=== PATIENT | male | born 1960 | race African-American/Black ===

== ENCOUNTER 2017-03-01 16:54 | Inpatient (IN) ==
[2017-03-01] MEDS ORDERED: cefTRIAXone 1,000 MG in SODIUM CHLORIDE 0.9% 100 ML IV STA (20:11)
[2017-03-01] MEDS ORDERED: ASPIRIN 325 MG TABLET PO STA (20:11)
[2017-03-01] MEDS ORDERED: methylPREDNISolone SOD SUC 125 MG/2 ML VIAL IV STA (20:11)
[2017-03-01] MEDS ORDERED: NITROGLYCERIN 2% OINT 1 INCH/GM PACK TOP STA (20:11)
[2017-03-01] MEDS ORDERED: FUROSEMIDE 100 MG/10 ML VIAL IV STA (20:11)
[2017-03-01] MEDS ORDERED: hydrALAZINE 20 MG/1 ML VIAL IV STA (20:11)
[2017-03-01] MEDS ORDERED: ALBUTEROL 2.5 MG/3 ML NEB RESP TX ONE (20:16)
[2017-03-01] MEDS ORDERED: ALBUTEROL 2.5 MG/3 ML NEB RESP TX SCH (20:30)
[2017-03-01 20:43] LABS: Basophils % 0.3 % (0.0-0.8); Eosinophils % 0.2 % (0.00-10.9); Hematocrit 41.1 VOL% (42.0-52.0); Hemoglobin 13.2 GM/DL (14.0-18.0); Immature Granulocytes % 4.3 %; Immature Granulocytes Absolute 0.42 #; Lymphocytes # 1.8 10*3/uL (1.4-4.0); Lymphocytes % 18.3 % (21.2-54.2); Mean Corpuscular HGB Conc 32.1 GM/DL (32-36); Mean Corpuscular Hemoglobin 25 PG (27-34); Mean Platelet Volume 9.1 FL (9.6-12.0); Monocytes # 1.2 10*3/uL (0.11-0.8); Monocytes % 12.7 % (1.7-12.7); NRBC # 0.02 10*3/uL; Neutrophils # 6.2 10*3/uL (1.4-7.4); Neutrophils % 64.2 % (38.7-73.9); Platelet Count 335 T/CUMM (130-400); Red Cell Distribution Width 15.9 % (9.3-17.3); White Blood Count 9.7 T/CUMM (4-12)
[2017-03-01] MEDS ORDERED: hydrALAZINE 20 MG/1 ML VIAL ONE (20:45)
[2017-03-01] MEDS ORDERED: NITROGLYCERIN 2% OINT 1 INCH/GM PACK TOP ONE (20:45)
[2017-03-01] MEDS ORDERED: SODIUM CHLORIDE 0.9% 100 ML IV ONE (20:45)
[2017-03-01] MEDS ORDERED: FUROSEMIDE 100 MG/10 ML VIAL ONE (20:45)
[2017-03-01] MEDS ORDERED: cefTRIAXone 1,000 MG VIAL ONE (20:45)
[2017-03-01] MEDS ORDERED: ASPIRIN 325 MG TABLET ONE (20:46)
[2017-03-01] MEDS ORDERED: methylPREDNISolone SOD SUC 125 MG/2 ML VIAL ONE (20:46)
[2017-03-01 20:53] LABS: INR 0.9; PT Patient Result 9.2 SECS
[2017-03-01 21:01] LABS: Alanine Aminotransferase 34 U/L (16-61); Albumin 2.9 G/DL (3.4-5.0); Alkaline Phosphatase 84 U/L (45-117); Aspartate Amino Transferase 14 U/L (0-37); Bilirubin,Total < 0.39 MG/DL (0.2-1.0); Blood Urea Nitrogen 20 MG/DL (7-18); Total Protein 6.6 G/DL (6.4-8.3)
[2017-03-01 21:02] LABS: Glucose 369 MG/DL (74-106); Magnesium 2.2 MG/DL (1.8-2.4); Osmolality,Calculated 290.8 MOS/KG (273-304); Potassium 4.1 MMOL/L (3.5-5.1); Sodium 137 MMOL/L (136-145); Troponin I Only 0.037 NG/ML (0.00-0.045)
[2017-03-01] MEDS ORDERED: INSULIN REGULAR 100 UNIT/ML SUBCUT STA (21:10)
[2017-03-01] MEDS ORDERED: INSULIN REGULAR 100 UNIT/ML ONE (21:21)
[2017-03-01 22:56] LABS: Apearance,Urine CLEAR (Clear); Bacteria,Urine Moderate /HPF (Few); Bilirubin,Urine Negative (Negative); Blood, Urine Small mg/dL (Negative); Glucose,Urine (UA) >=500 mg/dL (Negative); Hyaline Casts,Urine 1 /LPF (0-3); Ketones,Urine Negative (Negative); Mucus,Urine Occasional /LPF (Occasional); Nitrite,Urine Negative (Negative); Protein,Urine 30 MG/DL; RBC,Urine 2 /HPF (0-4); Squamous Epithelial Cell,Urine Occasional /HPF (0-10); Urine Color Straw (Yellow); Urine Specific Gravity 1.006 (1.001-1.035); Urine Urobilinogen < 2.0 EU/DL (0.2-1.0); WBC,Urine 5 /HPF (0-6)
[2017-03-01 23:04] LABS: Barbiturates Screen,Urine Negative (Negative); Benzodiazepines Screen,Urine Negative (Negative); Cannabinoid Screen,Urine Negative (Negative); Opiate Screen,Urine Negative (Negative); Phencyclidine Screen,Urine Negative (Negative)
[2017-03-01] MEDS ORDERED: ALBUTEROL/IPRATROPIUM 3 ML NEB RESP TX PRN (23:38)
[2017-03-01] MEDS ORDERED: GLUCAGON 1 MG VIAL IM PRN (23:42)
[2017-03-01] MEDS ORDERED: DEXTROSE 50% 25 GM/50 ML VIAL IV PRN (23:42)
[2017-03-02] MEDS ORDERED: INFLUENZA VIRUS VACCINE 0.5 ML SYRINGE IM ONE (00:41)
[2017-03-02] MEDS: ENOXAPARIN 40 MG/0.4 ML SYRINGE SUBCUT SCH (00:41)
[2017-03-02] MEDS: THEOPHYLLINE ER 300 MG TABLET PO SCH ×2 (00:41→11:58)
[2017-03-02] MEDS: methylPREDNISolone SOD SUC 40 MG/1 ML VIAL IV SCH ×2 (00:42→04:46)
[2017-03-02] MEDS ORDERED: PNEUMOCOCCAL VACCINE (23 VALENT) 0.5 ML VIAL IM ONE (00:44)
[2017-03-02] MEDS ORDERED: DEXTROSE 50% 25 GM/50 ML VIAL IV PRN (01:15)
[2017-03-02] MEDS ORDERED: GLUCAGON 1 MG VIAL IM PRN (01:15)
[2017-03-02] MEDS: INSULIN REGULAR 100 UNIT/ML SUBCUT SCH ×4 (01:42→17:36)
[2017-03-02] MEDS: ALBUTEROL/IPRATROPIUM 3 ML NEB RESP TX SCH ×4 (02:06→19:05)
[2017-03-02 03:20] LABS: Osmolality,Calculated 293.1 MOS/KG (273-304); Potassium 4.1 MMOL/L (3.5-5.1)
[2017-03-02] MEDS: AZITHROMYCIN INJ 500 MG in SODIUM CHLORIDE 0.9% 250 ML IV SCH (03:45)
[2017-03-02] MEDS ORDERED: INSULIN REGULAR 100 UNIT/ML SUBCUT ONE (03:46)
[2017-03-02] MEDS: INSULIN GLARGINE 100 UNIT/ML SUBCUT SCH ×3 (03:58→10:18)
[2017-03-02 04:15] LABS: Risk Ratio 4.25
[2017-03-02] MEDS: ASPIRIN EC 81 MG TABLET PO SCH (08:33)
[2017-03-02] MEDS: LOSARTAN 50 MG TABLET PO SCH (08:33)
[2017-03-02] MEDS: ALLOPURINOL 100 MG TABLET PO SCH (08:33)
[2017-03-02] MEDS: PANTOPRAZOLE 40 MG TABLET PO SCH (08:33)
[2017-03-02] MEDS: CETIRIZINE 10 MG TABLET PO SCH (08:33)
[2017-03-02] MEDS ORDERED: glipiZIDE 10 MG TABLET PO SCH (09:00)
[2017-03-02] MEDS ORDERED: OXYMETAZOLINE 0.05% NASAL SPRAY 15 ML BOTTLE BOTH NARES PRN (10:03)
[2017-03-02] MEDS: MAGNESIUM CHLORIDE 64 MG TABLET PO SCH ×2 (10:09→20:51)
[2017-03-02] MEDS: POTASSIUM CHLORIDE 10 MEQ TABLET PO SCH ×2 (10:09→20:52)
[2017-03-02] MEDS: DILTIAZEM 30 MG TABLET PO SCH ×3 (10:10→20:51)
[2017-03-02] MEDS: hydrALAZINE 25 MG TABLET PO SCH ×2 (10:12→20:52)
[2017-03-02] MEDS: prednisoLONE 5 MG TABLET PO SCH (11:06)
[2017-03-02] MEDS: ROSUVASTATIN 20 MG TABLET PO SCH (17:36)
[2017-03-02] MEDS: MONTELUKAST 10 MG TABLET PO SCH (20:52)
[2017-03-02] MEDS: cefTRIAXone 2,000 MG in SYRINGE 1 EACH IV SCH (20:52)
[2017-03-02] MEDS ORDERED: metFORMIN 500 MG TABLET PO SCH (21:00)
[2017-03-03] MEDS: ALBUTEROL/IPRATROPIUM 3 ML NEB RESP TX SCH ×4 (00:12→19:33)
[2017-03-03] MEDS: AZITHROMYCIN INJ 500 MG in SODIUM CHLORIDE 0.9% 250 ML IV SCH ×2 (01:47→23:44)
[2017-03-03] MEDS: INSULIN REGULAR 100 UNIT/ML SUBCUT SCH ×5 (01:47→23:55)
[2017-03-03] MEDS: ENOXAPARIN 40 MG/0.4 ML SYRINGE SUBCUT SCH ×2 (01:48→23:44)
[2017-03-03] MEDS: THEOPHYLLINE ER 300 MG TABLET PO SCH ×3 (01:48→23:44)
[2017-03-03] MEDS: BIMATOPROST 0.01% OPH SOLN 2.5 ML BOTTLE BOTH EYES SCH ×2 (01:49→20:58)
[2017-03-03] MEDS: LUMIGAN BOTH EYES SCH ×4 (01:50→20:57)
[2017-03-03] MEDS: prednisoLONE 5 MG TABLET PO SCH (09:34)
[2017-03-03] MEDS: ALLOPURINOL 100 MG TABLET PO SCH (09:34)
[2017-03-03] MEDS: MAGNESIUM CHLORIDE 64 MG TABLET PO SCH ×2 (09:34→20:57)
[2017-03-03] MEDS: CETIRIZINE 10 MG TABLET PO SCH (09:34)
[2017-03-03] MEDS: POTASSIUM CHLORIDE 10 MEQ TABLET PO SCH ×2 (09:34→20:57)
[2017-03-03] MEDS: ASPIRIN EC 81 MG TABLET PO SCH (09:34)
[2017-03-03] MEDS: ROSUVASTATIN 20 MG TABLET PO SCH (09:34)
[2017-03-03] MEDS: LOSARTAN 50 MG TABLET PO SCH (09:34)
[2017-03-03] MEDS: PANTOPRAZOLE 40 MG TABLET PO SCH (09:34)
[2017-03-03] MEDS: DILTIAZEM 30 MG TABLET PO SCH ×3 (09:34→20:57)
[2017-03-03] MEDS: INSULIN GLARGINE 100 UNIT/ML SUBCUT SCH (09:35)
[2017-03-03] MEDS: hydrALAZINE 25 MG TABLET PO SCH ×2 (09:39→20:57)
[2017-03-03] MEDS: cefTRIAXone 2,000 MG in SYRINGE 1 EACH IV SCH (20:00)
[2017-03-03] MEDS: MONTELUKAST 10 MG TABLET PO SCH (20:57)
[2017-03-04] MEDS: ALBUTEROL/IPRATROPIUM 3 ML NEB RESP TX SCH ×2 (00:59→07:19)
[2017-03-04] MEDS: INSULIN REGULAR 100 UNIT/ML SUBCUT SCH (06:11)
[2017-03-04 08:18] VITALS: BP 160/104
[2017-03-04] MEDS: MAGNESIUM CHLORIDE 64 MG TABLET PO SCH (09:10)
[2017-03-04] MEDS: PANTOPRAZOLE 40 MG TABLET PO SCH (09:10)
[2017-03-04] MEDS: CETIRIZINE 10 MG TABLET PO SCH (09:10)
[2017-03-04] MEDS: prednisoLONE 5 MG TABLET PO SCH (09:10)
[2017-03-04] MEDS: ROSUVASTATIN 20 MG TABLET PO SCH (09:10)
[2017-03-04] MEDS: ASPIRIN EC 81 MG TABLET PO SCH (09:10)
[2017-03-04] MEDS: LOSARTAN 50 MG TABLET PO SCH (09:10)
[2017-03-04] MEDS: POTASSIUM CHLORIDE 10 MEQ TABLET PO SCH (09:11)
[2017-03-04] MEDS: hydrALAZINE 25 MG TABLET PO SCH (09:11)
[2017-03-04] MEDS: LUMIGAN BOTH EYES SCH (09:11)
[2017-03-04] MEDS: DILTIAZEM 30 MG TABLET PO SCH (09:11)
[2017-03-04] MEDS: ALLOPURINOL 100 MG TABLET PO SCH (09:11)
[2017-03-04] MEDS: INSULIN GLARGINE 100 UNIT/ML SUBCUT SCH (09:11)
[2017-03-04] MEDS: THEOPHYLLINE ER 300 MG TABLET PO SCH (10:56)
== END 2017-03-04 10:45 | disposition home or self-care (01) | DRG 194 ==
LOC: N.ED 16:54 → N.EDINP 23:33 → N.5E 03-02 00:14
PROVIDERS: ADMIT Hospitalist; ATTEND Hospitalist

== ENCOUNTER 2017-05-07 13:39 | Inpatient (IN) ==
[2017-05-07 17:39] LABS: Basophils % 0.4 % (0.0-0.8); Eosinophils # 0.1 10*3/uL (0.0-0.87); Eosinophils % 1.2 % (0.00-10.9); Hemoglobin 12.6 GM/DL (14.0-18.0); Immature Granulocytes % 1.1 %; Immature Granulocytes Absolute 0.09 #; Lymphocytes # 2.5 10*3/uL (1.4-4.0); Mean Corpuscular HGB Conc 31.5 GM/DL (32-36); Mean Corpuscular Hemoglobin 25 PG (27-34); Mean Corpuscular Volume 78.6 FL (87-102); Mean Platelet Volume 9.2 FL (9.6-12.0); Monocytes # 1.3 10*3/uL (0.11-0.8); Monocytes % 15.7 % (1.7-12.7); Neutrophils # 4.1 10*3/uL (1.4-7.4); Neutrophils % 50.6 % (38.7-73.9); Platelet Count 423 T/CUMM (130-400); Red Blood Count 5.09 MC/CUMM (3.8-5.5); Red Cell Distribution Width 16.1 % (9.3-17.3); White Blood Count 8.1 T/CUMM (4-12)
[2017-05-07 17:59] LABS: Apearance,Urine CLOUDY (Clear); Bacteria,Urine Occasional /HPF (Few); Bilirubin,Urine Negative (Negative); Blood, Urine Small mg/dL (Negative); Glucose,Urine (UA) 50 mg/dL (Negative); Ketones,Urine Negative (Negative); Mucus,Urine Occasional /LPF (Occasional); Nitrite,Urine Negative (Negative); Protein,Urine 100 MG/DL; RBC,Urine 43 /HPF (0-4); Squamous Epithelial Cell,Urine Occasional /HPF (0-10); Urine Color Yellow (Yellow); Urine Specific Gravity 1.008 (1.001-1.035); Urine Urobilinogen < 2.0 EU/DL (0.2-1.0); WBC,Urine 246 /HPF (0-6)
[2017-05-07 18:02] LABS: Alanine Aminotransferase 70 U/L (16-61); Albumin 2.3 G/DL (3.4-5.0); Alkaline Phosphatase 106 U/L (45-117); Amylase 37 U/L (25-115); Aspartate Amino Transferase 65 U/L (0-37); Blood Urea Nitrogen 12 MG/DL (7-18); Glucose 238 MG/DL (74-106); Osmolality,Calculated 277.1 MOS/KG (273-304); Potassium 3.7 MMOL/L (3.5-5.1); Sodium 135 MMOL/L (136-145); Total Protein 6.1 G/DL (6.4-8.3); Troponin I Only < 0.015 NG/ML (0.00-0.045)
[2017-05-07 19:02] LABS: Lymphocytes 25 % (20-55); Segmented Neutrophils 63 % (50-85); Total Cells Counted 100
[2017-05-07 19:03] LABS: Anisocytosis Slight; Microcytosis Slight; Platelet Estimate Increased; Poikilocytosis Slight; Tear Drop Cells Few
[2017-05-07] MEDS ORDERED: ACETAMINOPHEN 325 MG TABLET PO PRN (21:41)
[2017-05-07] MEDS ORDERED: LEVOFLOXACIN 500 MG TABLET PO ONE (21:41)
[2017-05-07] MEDS ORDERED: ONDANSETRON 4 MG/2 ML VIAL IV PRN (21:41)
[2017-05-07] MEDS ORDERED: MEROPENEM 500 MG in SODIUM CHLORIDE 0.9% 100 ML IV SCH (21:41)
[2017-05-07] MEDS ORDERED: ENOXAPARIN 40 MG/0.4 ML SYRINGE SUBCUT SCH (21:41)
[2017-05-07] MEDS: POTASSIUM CHLORIDE 10 MEQ TABLET PO SCH (23:07)
[2017-05-07] MEDS: MONTELUKAST 10 MG TABLET PO SCH (23:07)
[2017-05-07] MEDS: MAGNESIUM CHLORIDE 64 MG TABLET PO SCH (23:07)
[2017-05-07] MEDS: DILTIAZEM 30 MG TABLET PO SCH (23:08)
[2017-05-07] MEDS: THEOPHYLLINE ER 300 MG TABLET PO SCH (23:08)
[2017-05-07] MEDS: glipiZIDE 10 MG TABLET PO SCH (23:08)
[2017-05-07] MEDS: methylPREDNISolone SOD SUC 40 MG/1 ML VIAL IV SCH (23:09)
[2017-05-07] MEDS: MEROPENEM 500 MG in SYRINGE 1 EACH IV SCH (23:11)
[2017-05-07] MEDS: SODIUM CHLORIDE 0.9% 1,000 ML IV SCH (23:43)
[2017-05-07] MEDS: ALBUTEROL/IPRATROPIUM 3 ML NEB RESP TX SCH (23:45)
[2017-05-08] MEDS: ALBUTEROL/IPRATROPIUM 3 ML NEB RESP TX SCH ×5 (03:04→21:37)
[2017-05-08 07:47] LABS: Alanine Aminotransferase 58 U/L (16-61); Albumin 2.1 G/DL (3.4-5.0); Alkaline Phosphatase 99 U/L (45-117); Aspartate Amino Transferase 43 U/L (0-37); Blood Urea Nitrogen 11 MG/DL (7-18); Calcium 7.6 MG/DL (8.5-10.1); Glucose 324 MG/DL (74-106); Potassium 4.4 MMOL/L (3.5-5.1); Sodium 136 MMOL/L (136-145); Total Protein 5.8 G/DL (6.4-8.3); Troponin I Only < 0.015 NG/ML (0.00-0.045)
[2017-05-08] MEDS ORDERED: LOSARTAN 50 MG TABLET PO SCH (09:00)
[2017-05-08] MEDS: SODIUM CHLORIDE 0.9% 1,000 ML IV SCH (09:03)
[2017-05-08] MEDS: THEOPHYLLINE ER 300 MG TABLET PO SCH ×2 (09:03→20:43)
[2017-05-08] MEDS: DILTIAZEM 30 MG TABLET PO SCH ×3 (09:04→20:43)
[2017-05-08] MEDS: CETIRIZINE 10 MG TABLET PO SCH (09:04)
[2017-05-08] MEDS: ALLOPURINOL 100 MG TABLET PO SCH (09:04)
[2017-05-08] MEDS: POTASSIUM CHLORIDE 10 MEQ TABLET PO SCH ×2 (09:04→20:43)
[2017-05-08] MEDS: ASPIRIN EC 81 MG TABLET PO SCH (09:04)
[2017-05-08] MEDS: MAGNESIUM CHLORIDE 64 MG TABLET PO SCH ×2 (09:04→20:43)
[2017-05-08] MEDS: glipiZIDE 10 MG TABLET PO SCH ×2 (09:04→20:43)
[2017-05-08] MEDS: PANTOPRAZOLE 40 MG TABLET PO SCH (09:04)
[2017-05-08] MEDS: methylPREDNISolone SOD SUC 40 MG/1 ML VIAL IV SCH ×3 (09:09→22:38)
[2017-05-08] MEDS: MEROPENEM 500 MG in SYRINGE 1 EACH IV SCH ×2 (10:23→22:34)
[2017-05-08] MEDS: INSULIN GLARGINE 100 UNIT/ML SUBCUT SCH (12:13)
[2017-05-08] MEDS: INSULIN REGULAR 100 UNIT/ML SUBCUT SCH ×4 (12:13→20:53)
[2017-05-08] MEDS: MONTELUKAST 10 MG TABLET PO SCH (20:42)
[2017-05-08] MEDS: LEVOFLOXACIN 250 MG TABLET PO SCH (20:51)
[2017-05-08] MEDS: BUDESONIDE 0.25 MG/2 ML NEB RESP TX SCH (21:37)
[2017-05-08] MEDS: FORMOTEROL 20 MCG/2 ML NEB RESP TX SCH (21:37)
[2017-05-09] MEDS: ALBUTEROL/IPRATROPIUM 3 ML NEB RESP TX SCH ×7 (01:19→23:49)
[2017-05-09] MEDS: SODIUM CHLORIDE 0.9% 1,000 ML IV SCH ×4 (01:21→23:01)
[2017-05-09 02:16] LABS: Basophils % 0.1 % (0.0-0.8); Hematocrit 29.9 VOL% (42.0-52.0); Hemoglobin 9.6 GM/DL (14.0-18.0); Immature Granulocytes % 0.9 %; Lymphocytes # 1.2 10*3/uL (1.4-4.0); Lymphocytes % 10.5 % (21.2-54.2); Mean Corpuscular HGB Conc 32.1 GM/DL (32-36); Mean Corpuscular Hemoglobin 25 PG (27-34); Mean Corpuscular Volume 77.1 FL (87-102); Mean Platelet Volume 9.3 FL (9.6-12.0); Monocytes % 8.6 % (1.7-12.7); Neutrophils % 79.9 % (38.7-73.9); Platelet Count 393 T/CUMM (130-400); Red Blood Count 3.88 MC/CUMM (3.8-5.5); Red Cell Distribution Width 15.9 % (9.3-17.3); White Blood Count 11.3 T/CUMM (4-12)
[2017-05-09 02:57] LABS: Calcium 8.1 MG/DL (8.5-10.1); Magnesium 1.8 MG/DL (1.8-2.4); Osmolality,Calculated 276.7 MOS/KG (273-304); Potassium 3.6 MMOL/L (3.5-5.1)
[2017-05-09] MEDS: FORMOTEROL 20 MCG/2 ML NEB RESP TX SCH ×2 (07:04→20:32)
[2017-05-09] MEDS: BUDESONIDE 0.25 MG/2 ML NEB RESP TX SCH ×2 (07:06→20:32)
[2017-05-09] MEDS: INSULIN GLARGINE 100 UNIT/ML SUBCUT SCH (09:00)
[2017-05-09] MEDS ORDERED: PROPOFOL 200 MG/20 ML VIAL IV ONE (11:00)
[2017-05-09] MEDS ORDERED: LIDOCAINE 100 MG/5 ML SYRINGE ONE (11:00)
[2017-05-09] MEDS ORDERED: BISACODYL 5 MG TABLET PO ONE (12:00)
[2017-05-09] MEDS: INSULIN REGULAR 100 UNIT/ML SUBCUT SCH ×4 (12:43→20:28)
[2017-05-09] MEDS: POTASSIUM CHLORIDE 10 MEQ TABLET PO SCH ×2 (14:24→20:25)
[2017-05-09] MEDS: DILTIAZEM 30 MG TABLET PO SCH ×3 (14:24→20:24)
[2017-05-09] MEDS: THEOPHYLLINE ER 300 MG TABLET PO SCH ×2 (14:25→20:25)
[2017-05-09] MEDS: CETIRIZINE 10 MG TABLET PO SCH (14:25)
[2017-05-09] MEDS: ALLOPURINOL 100 MG TABLET PO SCH (14:26)
[2017-05-09] MEDS: MEROPENEM 500 MG in SYRINGE 1 EACH IV SCH ×2 (14:26→22:09)
[2017-05-09] MEDS: glipiZIDE 10 MG TABLET PO SCH ×2 (14:26→20:25)
[2017-05-09] MEDS: MAGNESIUM CHLORIDE 64 MG TABLET PO SCH ×2 (14:26→20:25)
[2017-05-09] MEDS: ASPIRIN EC 81 MG TABLET PO SCH (14:26)
[2017-05-09] MEDS: PANTOPRAZOLE 40 MG TABLET PO SCH (14:26)
[2017-05-09] MEDS: methylPREDNISolone SOD SUC 40 MG/1 ML VIAL IV SCH ×2 (14:27→22:06)
[2017-05-09] MEDS ORDERED: POLYETHYLENE GLYCOL POWDER 255 GM BOTTLE PO ONE (18:00)
[2017-05-09] MEDS: LEVOFLOXACIN 250 MG TABLET PO SCH (20:25)
[2017-05-09] MEDS: MONTELUKAST 10 MG TABLET PO SCH (20:25)
[2017-05-10] MEDS: ALBUTEROL/IPRATROPIUM 3 ML NEB RESP TX SCH ×5 (03:21→19:50)
[2017-05-10] MEDS: SODIUM CHLORIDE 0.9% 1,000 ML IV SCH ×3 (07:35→15:40)
[2017-05-10] MEDS: INSULIN REGULAR 100 UNIT/ML SUBCUT SCH ×4 (07:35→21:14)
[2017-05-10] MEDS: FORMOTEROL 20 MCG/2 ML NEB RESP TX SCH ×2 (07:38→19:50)
[2017-05-10] MEDS: BUDESONIDE 0.25 MG/2 ML NEB RESP TX SCH ×2 (07:38→19:50)
[2017-05-10] MEDS: INSULIN GLARGINE 100 UNIT/ML SUBCUT SCH (13:39)
[2017-05-10] MEDS: DILTIAZEM 30 MG TABLET PO SCH ×3 (13:59→21:11)
[2017-05-10] MEDS: THEOPHYLLINE ER 300 MG TABLET PO SCH ×2 (14:00→21:11)
[2017-05-10] MEDS: glipiZIDE 10 MG TABLET PO SCH ×2 (14:00→21:12)
[2017-05-10] MEDS: POTASSIUM CHLORIDE 10 MEQ TABLET PO SCH ×2 (14:00→21:12)
[2017-05-10] MEDS: MAGNESIUM CHLORIDE 64 MG TABLET PO SCH ×2 (14:00→21:11)
[2017-05-10] MEDS: ALLOPURINOL 100 MG TABLET PO SCH (14:00)
[2017-05-10] MEDS: CETIRIZINE 10 MG TABLET PO SCH (14:00)
[2017-05-10] MEDS: PANTOPRAZOLE 40 MG TABLET PO SCH (14:00)
[2017-05-10] MEDS: ASPIRIN EC 81 MG TABLET PO SCH (14:01)
[2017-05-10] MEDS: MEROPENEM 500 MG in SYRINGE 1 EACH IV SCH ×2 (14:01→23:29)
[2017-05-10] MEDS: methylPREDNISolone SOD SUC 40 MG/1 ML VIAL IV SCH (14:01)
[2017-05-10] MEDS: MONTELUKAST 10 MG TABLET PO SCH (21:11)
[2017-05-10] MEDS: LEVOFLOXACIN 250 MG TABLET PO SCH (21:12)
[2017-05-11] MEDS: ALBUTEROL/IPRATROPIUM 3 ML NEB RESP TX SCH ×5 (00:57→14:30)
[2017-05-11] MEDS: BUDESONIDE 0.25 MG/2 ML NEB RESP TX SCH (07:28)
[2017-05-11] MEDS: FORMOTEROL 20 MCG/2 ML NEB RESP TX SCH (07:29)
[2017-05-11] MEDS: SODIUM CHLORIDE 0.9% 1,000 ML IV SCH ×2 (07:59→09:02)
[2017-05-11] MEDS: INSULIN REGULAR 100 UNIT/ML SUBCUT SCH ×3 (07:59→16:33)
[2017-05-11] MEDS: INSULIN GLARGINE 100 UNIT/ML SUBCUT SCH (08:54)
[2017-05-11] MEDS: glipiZIDE 10 MG TABLET PO SCH (08:54)
[2017-05-11] MEDS: THEOPHYLLINE ER 300 MG TABLET PO SCH (08:54)
[2017-05-11] MEDS: DILTIAZEM 30 MG TABLET PO SCH ×2 (08:55→16:34)
[2017-05-11] MEDS: PANTOPRAZOLE 40 MG TABLET PO SCH (08:55)
[2017-05-11] MEDS: ASPIRIN EC 81 MG TABLET PO SCH (08:55)
[2017-05-11] MEDS: ALLOPURINOL 100 MG TABLET PO SCH (08:55)
[2017-05-11] MEDS: CETIRIZINE 10 MG TABLET PO SCH (08:55)
[2017-05-11] MEDS: MAGNESIUM CHLORIDE 64 MG TABLET PO SCH (08:55)
[2017-05-11] MEDS: POTASSIUM CHLORIDE 10 MEQ TABLET PO SCH (08:55)
[2017-05-11] MEDS ORDERED: predniSONE 20 MG TABLET PO SCH (09:00)
[2017-05-11 10:36] LABS: Hematocrit 33.4 VOL% (42.0-52.0); Hemoglobin 10.8 GM/DL (14.0-18.0)
[2017-05-11] MEDS: MEROPENEM 500 MG in SYRINGE 1 EACH IV SCH (11:20)
[2017-05-11 16:16] VITALS: BP 146/73
== END 2017-05-11 16:50 | disposition home or self-care (01) | DRG 683 ==
LOC: N.ED 13:39 → SUATTDRO 19:05 → N.EDINP 19:05 → N.4E 19:59
PROVIDERS: ADMIT Internal Medicine; ATTEND Internal Medicine

== ENCOUNTER 2017-06-02 13:24 | Inpatient (IN) ==
[2017-06-02] MEDS ORDERED: GLUCAGON 1 MG VIAL IM PRN ×2 (14:05→18:04)
[2017-06-02] MEDS ORDERED: ALBUTEROL/IPRATROPIUM 3 ML NEB RESP TX STA (14:36)
[2017-06-02 14:37] LABS: Basophils # 0.1 10*3/uL (0.0-0.2); Basophils % 0.9 % (0.0-0.8); Eosinophils # 3.8 10*3/uL (0.0-0.87); Eosinophils % 35.9 % (0.00-10.9); Hemoglobin 12.2 GM/DL (14.0-18.0); Immature Granulocytes % 0.2 %; Immature Granulocytes Absolute 0.02 #; Lymphocytes # 2.3 10*3/uL (1.4-4.0); Lymphocytes % 22.3 % (21.2-54.2); Mean Corpuscular HGB Conc 30.5 GM/DL (32-36); Mean Corpuscular Hemoglobin 24 PG (27-34); Mean Corpuscular Volume 79.8 FL (87-102); Mean Platelet Volume 9.8 FL (9.6-12.0); Monocytes # 0.8 10*3/uL (0.11-0.8); Monocytes % 7.8 % (1.7-12.7); Neutrophils # 3.5 10*3/uL (1.4-7.4); Neutrophils % 32.9 % (38.7-73.9); Platelet Count 394 T/CUMM (130-400); Red Blood Count 5.01 MC/CUMM (3.8-5.5); Red Cell Distribution Width 15.6 % (9.3-17.3); White Blood Count 10.5 T/CUMM (4-12)
[2017-06-02 14:55] LABS: Alanine Aminotransferase 14 U/L (16-61); Albumin 2.6 G/DL (3.4-5.0); Alkaline Phosphatase 87 U/L (45-117); Aspartate Amino Transferase 38 U/L (0-37); Bilirubin,Total < 0.39 MG/DL (0.2-1.0); Blood Urea Nitrogen 5 MG/DL (7-18); Calcium 9.5 MG/DL (8.5-10.1); Glucose 51 MG/DL (74-106); Osmolality,Calculated 270.5 MOS/KG (273-304); Potassium 3.3 MMOL/L (3.5-5.1); Sodium 139 MMOL/L (136-145); Total Protein 6.4 G/DL (6.4-8.3)
[2017-06-02 15:03] LABS: Eosinophils 26 % (0-10); Lymphocytes 27 % (20-55); Ovalocytes 1+; Platelet Estimate Adequate; Poikilocytosis 1+; Segmented Neutrophils 38 % (50-85); Tear Drop Cells Slight; Total Cells Counted 100
[2017-06-02] MEDS ORDERED: DEXTROSE 50% 25 GM/50 ML VIAL IV ONE (15:04)
[2017-06-02] MEDS: DEXTROSE 50% 25 GM/50 ML VIAL IV PRN ×3 (15:11→23:06)
[2017-06-02] MEDS ORDERED: ACETAMINOPHEN 325 MG TABLET PO PRN (17:54)
[2017-06-02] MEDS ORDERED: ONDANSETRON 4 MG/2 ML VIAL IV PRN (17:54)
[2017-06-02] MEDS ORDERED: POTASSIUM CHLORIDE RIDER 10 MEQ in PREMIX 1 EACH IV PRN (18:00)
[2017-06-02] MEDS ORDERED: DEXTROSE 50% 25 GM/50 ML VIAL IV PRN (18:04)
[2017-06-02] MEDS ORDERED: hydrALAZINE 20 MG/1 ML VIAL IV PRN (18:06)
[2017-06-02] MEDS ORDERED: DEXTROSE 10% 250 ML IV ONE (18:55)
[2017-06-02] MEDS: DEXTROSE 10% 1,000 ML IV SCH (19:12)
[2017-06-02] MEDS: cloNIDine 0.1 MG TABLET PO SCH (20:36)
[2017-06-02] MEDS: PANTOPRAZOLE 40 MG VIAL IV SCH (20:36)
[2017-06-02] MEDS ORDERED: KETOROLAC 15 MG/1 ML VIAL IV PRN (21:29)
[2017-06-02] MEDS: ALBUTEROL 2.5 MG/3 ML NEB RESP TX PRN (21:40)
[2017-06-03] MEDS: DEXTROSE 10% 1,000 ML IV SCH ×3 (00:04→15:00)
[2017-06-03] MEDS: ALBUTEROL 2.5 MG/3 ML NEB RESP TX PRN ×3 (03:01→10:38)
[2017-06-03] MEDS: DEXTROSE 50% 25 GM/50 ML VIAL IV PRN (05:53)
[2017-06-03 06:03] LABS: Basophils # 0.1 10*3/uL (0.0-0.2); Basophils % 0.9 % (0.0-0.8); Eosinophils # 4.3 10*3/uL (0.0-0.87); Eosinophils % 39.2 % (0.00-10.9); Hematocrit 35.9 VOL% (42.0-52.0); Hemoglobin 11.2 GM/DL (14.0-18.0); Immature Granulocytes % 0.3 %; Immature Granulocytes Absolute 0.03 #; Lymphocytes % 27.2 % (21.2-54.2); Mean Corpuscular HGB Conc 31.2 GM/DL (32-36); Mean Corpuscular Hemoglobin 25 PG (27-34); Mean Corpuscular Volume 78.6 FL (87-102); Mean Platelet Volume 9.7 FL (9.6-12.0); Monocytes # 1.2 10*3/uL (0.11-0.8); Monocytes % 10.4 % (1.7-12.7); Neutrophils # 2.4 10*3/uL (1.4-7.4); Platelet Count 378 T/CUMM (130-400); Red Blood Count 4.57 MC/CUMM (3.8-5.5); Red Cell Distribution Width 15.9 % (9.3-17.3)
[2017-06-03 06:25] LABS: Albumin 2.2 G/DL (3.4-5.0); Bilirubin,Total 0.6 MG/DL (0.2-1.0); Calcium 9.1 MG/DL (8.5-10.1); Osmolality,Calculated 272.5 MOS/KG (273-304); Potassium 3.1 MMOL/L (3.5-5.1); Total Protein 5.7 G/DL (6.4-8.3)
[2017-06-03 07:06] LABS: Eosinophils 45 % (0-10); Giant Platelets Few; Hypochromasia 1+; Lymphocytes 20 % (20-55); Ovalocytes Slight; Platelet Estimate Adequate; Segmented Neutrophils 28 % (50-85); Total Cells Counted 100
[2017-06-03] MEDS ORDERED: POTASSIUM CHLORIDE INJ 40 MEQ in SODIUM CHLORIDE 0.9% 500 ML IV ONE (08:00)
[2017-06-03] MEDS ORDERED: POTASSIUM CHLORIDE 20 MEQ TABLET PO ONE (10:44)
[2017-06-03] MEDS ORDERED: methylPREDNISolone SOD SUC 125 MG/2 ML VIAL IV ONE (10:46)
[2017-06-03] MEDS: THEOPHYLLINE ER 300 MG TABLET PO SCH ×2 (11:44→23:14)
[2017-06-03] MEDS: MAGNESIUM CHLORIDE 64 MG TABLET PO SCH ×2 (11:44→21:05)
[2017-06-03] MEDS: cloNIDine 0.1 MG TABLET PO SCH ×2 (11:45→21:05)
[2017-06-03] MEDS: FORMOTEROL 20 MCG/2 ML NEB RESP TX SCH ×2 (11:45→19:23)
[2017-06-03] MEDS: ALBUTEROL/IPRATROPIUM 3 ML NEB RESP TX SCH ×4 (12:01→23:52)
[2017-06-03] MEDS: methylPREDNISolone SOD SUC 40 MG/1 ML VIAL IV SCH (18:53)
[2017-06-03] MEDS: BUDESONIDE 0.25 MG/2 ML NEB RESP TX SCH (19:23)
[2017-06-03] MEDS: PANTOPRAZOLE 40 MG VIAL IV SCH (21:05)
[2017-06-03] MEDS: MONTELUKAST 10 MG TABLET PO SCH (21:05)
[2017-06-03] MEDS ORDERED: METOPROLOL TARTRATE 5 MG/5 ML VIAL IV ONE (22:00)
[2017-06-04] MEDS: DEXTROSE 10% 1,000 ML IV SCH (01:05)
[2017-06-04] MEDS: methylPREDNISolone SOD SUC 40 MG/1 ML VIAL IV SCH (03:12)
[2017-06-04] MEDS: ALBUTEROL/IPRATROPIUM 3 ML NEB RESP TX SCH ×6 (03:12→23:19)
[2017-06-04] MEDS: BUDESONIDE 0.25 MG/2 ML NEB RESP TX SCH ×2 (07:23→20:16)
[2017-06-04] MEDS: FORMOTEROL 20 MCG/2 ML NEB RESP TX SCH ×2 (07:30→20:16)
[2017-06-04] MEDS: cloNIDine 0.1 MG TABLET PO SCH ×2 (08:01→20:50)
[2017-06-04] MEDS: MAGNESIUM CHLORIDE 64 MG TABLET PO SCH ×2 (08:01→20:51)
[2017-06-04] MEDS: ASPIRIN EC 81 MG TABLET PO SCH (08:02)
[2017-06-04] MEDS: CETIRIZINE 10 MG TABLET PO SCH (08:02)
[2017-06-04 09:15] LABS: Basophils % 0.4 % (0.0-0.8); Eosinophils # 0.1 10*3/uL (0.0-0.87); Eosinophils % 0.9 % (0.00-10.9); Hematocrit 36.8 VOL% (42.0-52.0); Immature Granulocytes % 0.5 %; Immature Granulocytes Absolute 0.04 #; Lymphocytes # 1.5 10*3/uL (1.4-4.0); Lymphocytes % 18.5 % (21.2-54.2); Mean Corpuscular HGB Conc 32.6 GM/DL (32-36); Mean Corpuscular Hemoglobin 25 PG (27-34); Mean Corpuscular Volume 76.2 FL (87-102); Mean Platelet Volume 9.7 FL (9.6-12.0); Monocytes # 0.5 10*3/uL (0.11-0.8); Monocytes % 6.1 % (1.7-12.7); Neutrophils # 6.1 10*3/uL (1.4-7.4); Neutrophils % 73.6 % (38.7-73.9); Platelet Count 450 T/CUMM (130-400); Red Blood Count 4.83 MC/CUMM (3.8-5.5); Red Cell Distribution Width 15.6 % (9.3-17.3); White Blood Count 8.2 T/CUMM (4-12)
[2017-06-04 09:33] LABS: Calcium 8.9 MG/DL (8.5-10.1); Osmolality,Calculated 281.8 MOS/KG (273-304); Potassium 3.9 MMOL/L (3.5-5.1)
[2017-06-04] MEDS ORDERED: GLUCAGON 1 MG VIAL IM PRN (09:33)
[2017-06-04] MEDS ORDERED: DEXTROSE 50% 25 GM/50 ML VIAL IV PRN (09:33)
[2017-06-04] MEDS: THEOPHYLLINE ER 300 MG TABLET PO SCH (10:19)
[2017-06-04] MEDS: INSULIN REGULAR 100 UNIT/ML SUBCUT SCH ×3 (11:38→22:57)
[2017-06-04] MEDS: MONTELUKAST 10 MG TABLET PO SCH (20:50)
[2017-06-05] MEDS: THEOPHYLLINE ER 300 MG TABLET PO SCH ×2 (00:53→12:57)
[2017-06-05] MEDS: ALBUTEROL/IPRATROPIUM 3 ML NEB RESP TX SCH ×5 (03:35→19:47)
[2017-06-05 05:16] LABS: Basophils # 0.1 10*3/uL (0.0-0.2); Basophils % 0.6 % (0.0-0.8); Eosinophils # 2.1 10*3/uL (0.0-0.87); Eosinophils % 14.4 % (0.00-10.9); Hematocrit 34.5 VOL% (42.0-52.0); Hemoglobin 10.7 GM/DL (14.0-18.0); Immature Granulocytes % 0.5 %; Immature Granulocytes Absolute 0.07 #; Lymphocytes # 3.4 10*3/uL (1.4-4.0); Lymphocytes % 23.7 % (21.2-54.2); Mean Corpuscular Hemoglobin 24 PG (27-34); Mean Corpuscular Volume 78.4 FL (87-102); Mean Platelet Volume 9.7 FL (9.6-12.0); Monocytes # 1.1 10*3/uL (0.11-0.8); Monocytes % 7.5 % (1.7-12.7); Neutrophils # 7.7 10*3/uL (1.4-7.4); Neutrophils % 53.3 % (38.7-73.9); Platelet Count 417 T/CUMM (130-400); Red Cell Distribution Width 15.9 % (9.3-17.3); White Blood Count 14.5 T/CUMM (4-12)
[2017-06-05 05:42] LABS: Calcium 8.8 MG/DL (8.5-10.1); Osmolality,Calculated 280.1 MOS/KG (273-304); Potassium 3.5 MMOL/L (3.5-5.1)
[2017-06-05 05:46] LABS: Eosinophils 15 % (0-10); Giant Platelets Few; Hypochromasia 1+; Lymphocytes 20 % (20-55); Platelet Estimate Adequate; Segmented Neutrophils 57 % (50-85); Total Cells Counted 100
[2017-06-05 05:47] LABS: Ovalocytes Slight
[2017-06-05] MEDS: BUDESONIDE 0.25 MG/2 ML NEB RESP TX SCH ×2 (07:31→19:47)
[2017-06-05] MEDS: FORMOTEROL 20 MCG/2 ML NEB RESP TX SCH ×2 (07:38→19:47)
[2017-06-05] MEDS: INSULIN REGULAR 100 UNIT/ML SUBCUT SCH ×4 (08:52→21:52)
[2017-06-05] MEDS: cloNIDine 0.1 MG TABLET PO SCH ×2 (09:43→21:49)
[2017-06-05] MEDS: ASPIRIN EC 81 MG TABLET PO SCH (09:43)
[2017-06-05] MEDS: predniSONE 20 MG TABLET PO SCH (09:44)
[2017-06-05] MEDS: MAGNESIUM CHLORIDE 64 MG TABLET PO SCH ×2 (09:44→21:49)
[2017-06-05] MEDS: PANTOPRAZOLE 40 MG TABLET PO SCH (09:44)
[2017-06-05] MEDS: CETIRIZINE 10 MG TABLET PO SCH (09:44)
[2017-06-05] MEDS ORDERED: SKIN HEALING OINT (AQUAPHOR) 50 GM TUBE TOP PRN (13:15)
[2017-06-05] MEDS: MONTELUKAST 10 MG TABLET PO SCH (21:49)
[2017-06-06] MEDS: THEOPHYLLINE ER 300 MG TABLET PO SCH ×2 (00:30→12:04)
[2017-06-06] MEDS: ALBUTEROL/IPRATROPIUM 3 ML NEB RESP TX SCH ×4 (04:06→11:46)
[2017-06-06 06:02] LABS: Basophils # 0.1 10*3/uL (0.0-0.2); Basophils % 0.4 % (0.0-0.8); Eosinophils # 0.9 10*3/uL (0.0-0.87); Eosinophils % 6.6 % (0.00-10.9); Hematocrit 30.4 VOL% (42.0-52.0); Hemoglobin 9.8 GM/DL (14.0-18.0); Immature Granulocytes % 0.8 %; Lymphocytes # 3.3 10*3/uL (1.4-4.0); Lymphocytes % 25.6 % (21.2-54.2); Mean Corpuscular HGB Conc 32.2 GM/DL (32-36); Mean Corpuscular Hemoglobin 25 PG (27-34); Mean Corpuscular Volume 77.6 FL (87-102); Mean Platelet Volume 9.4 FL (9.6-12.0); Monocytes # 1.2 10*3/uL (0.11-0.8); Neutrophils # 7.5 10*3/uL (1.4-7.4); Neutrophils % 57.6 % (38.7-73.9); Platelet Count 426 T/CUMM (130-400); Red Blood Count 3.92 MC/CUMM (3.8-5.5); Red Cell Distribution Width 16.2 % (9.3-17.3); White Blood Count 12.9 T/CUMM (4-12)
[2017-06-06 06:42] LABS: Calcium 8.5 MG/DL (8.5-10.1); Osmolality,Calculated 277.3 MOS/KG (273-304); Potassium 3.3 MMOL/L (3.5-5.1)
[2017-06-06] MEDS: MAGNESIUM CHLORIDE 64 MG TABLET PO SCH (08:40)
[2017-06-06] MEDS: predniSONE 20 MG TABLET PO SCH (08:42)
[2017-06-06] MEDS: ASPIRIN EC 81 MG TABLET PO SCH (08:42)
[2017-06-06] MEDS: cloNIDine 0.1 MG TABLET PO SCH (08:42)
[2017-06-06] MEDS: PANTOPRAZOLE 40 MG TABLET PO SCH (08:42)
[2017-06-06] MEDS: INSULIN REGULAR 100 UNIT/ML SUBCUT SCH ×2 (08:46→12:04)
[2017-06-06] MEDS: CETIRIZINE 10 MG TABLET PO SCH (08:46)
[2017-06-06] MEDS: FORMOTEROL 20 MCG/2 ML NEB RESP TX SCH (09:30)
[2017-06-06 09:52] VITALS: BP 147/82
== END 2017-06-06 12:55 | disposition home or self-care (01) | DRG 638 ==
LOC: EDUNIT# → EDBD → N.ED 13:24 → N.EDINP 17:10 → SUATTDRO 17:10 → N.EDINP 20:30 → N.CC 20:42 → N.4E 06-04 11:56
PROVIDERS: ADMIT Hospitalist; ATTEND Internal Medicine Cardiovascular Disease

== ENCOUNTER 2017-06-15 10:45 | Inpatient (IN) ==
[2017-06-15] MEDS ORDERED: ALBUTEROL 2.5 MG/3 ML NEB RESP TX PRN (10:50)
[2017-06-15] MEDS ORDERED: SODIUM CHLORIDE 0.9% 1,000 ML IV STA (10:51)
[2017-06-15 11:41] LABS: Basophils # 0.1 10*3/uL (0.0-0.2); Basophils % 0.4 % (0.0-0.8); Eosinophils % 41.9 % (0.00-10.9); Hematocrit 40.5 VOL% (42.0-52.0); Hemoglobin 12.6 GM/DL (14.0-18.0); Immature Granulocytes % 0.4 %; Immature Granulocytes Absolute 0.07 #; Lymphocytes # 3.1 10*3/uL (1.4-4.0); Lymphocytes % 16.2 % (21.2-54.2); Mean Corpuscular HGB Conc 31.1 GM/DL (32-36); Mean Corpuscular Hemoglobin 25 PG (27-34); Mean Corpuscular Volume 79.6 FL (87-102); Mean Platelet Volume 8.8 FL (9.6-12.0); Monocytes # 1.6 10*3/uL (0.11-0.8); Monocytes % 8.4 % (1.7-12.7); Neutrophils # 6.3 10*3/uL (1.4-7.4); Neutrophils % 32.7 % (38.7-73.9); Platelet Count 489 T/CUMM (130-400); Red Blood Count 5.09 MC/CUMM (3.8-5.5); Red Cell Distribution Width 16.9 % (9.3-17.3); White Blood Count 19.1 T/CUMM (4-12)
[2017-06-15 11:59] LABS: Bilirubin,Total 0.4 MG/DL (0.2-1.0); Calcium 9.8 MG/DL (8.5-10.1); Osmolality,Calculated 272.7 MOS/KG (273-304); Potassium 3.5 MMOL/L (3.5-5.1); Total Protein 6.8 G/DL (6.4-8.3)
[2017-06-15 12:08] LABS: Eosinophils 45 % (0-10); Hypochromasia 1+; Lymphocytes 24 % (20-55); Microcytosis 1+; Ovalocytes Slight; Platelet Estimate Increased; Segmented Neutrophils 26 % (50-85); Total Cells Counted 100
[2017-06-15] MEDS ORDERED: ENOXAPARIN 80 MG/0.8 ML SYRINGE SUBCUT STA (14:43)
[2017-06-15] MEDS ORDERED: ENOXAPARIN 80 MG/0.8 ML SYRINGE SUBCUT ONE (15:06)
[2017-06-15] MEDS ORDERED: LABETALOL 20 MG/4 ML SYRINGE IV STA (15:52)
[2017-06-15] MEDS ORDERED: LABETALOL 20 MG/4 ML SYRINGE IV ONE (16:21)
[2017-06-15] MEDS ORDERED: ALBUTEROL 2.5 MG/3 ML NEB RESP TX STA (17:10)
[2017-06-15] MEDS ORDERED: DEXTROSE 50% 25 GM/50 ML VIAL IV PRN (17:46)
[2017-06-15] MEDS ORDERED: GLUCAGON 1 MG VIAL IM PRN (17:46)
[2017-06-15] MEDS ORDERED: ONDANSETRON 4 MG/2 ML VIAL IV PRN (17:46)
[2017-06-15] MEDS ORDERED: ACETAMINOPHEN 325 MG TABLET PO PRN (17:46)
[2017-06-15] MEDS: INSULIN LISPRO 100 UNIT/ML SUBCUT SCH ×2 (18:26→20:40)
[2017-06-15] MEDS: methylPREDNISolone SOD SUC 125 MG/2 ML VIAL IV SCH (18:26)
[2017-06-15] MEDS: ALBUTEROL 2.5 MG/3 ML NEB RESP TX PRN (19:08)
[2017-06-15] MEDS: BUDESONIDE 0.25 MG/2 ML NEB RESP TX SCH (19:09)
[2017-06-15] MEDS: POTASSIUM CHLORIDE 10 MEQ TABLET PO SCH (20:39)
[2017-06-15] MEDS: APIXABAN 5 MG TABLET PO SCH (20:39)
[2017-06-15] MEDS: MONTELUKAST 10 MG TABLET PO SCH (20:39)
[2017-06-15] MEDS: hydrALAZINE 25 MG TABLET PO SCH (20:39)
[2017-06-15] MEDS: MAGNESIUM CHLORIDE 64 MG TABLET PO SCH (20:40)
[2017-06-15] MEDS: DILTIAZEM 30 MG TABLET PO SCH (20:40)
[2017-06-16] MEDS: methylPREDNISolone SOD SUC 125 MG/2 ML VIAL IV SCH ×4 (00:38→18:10)
[2017-06-16 06:10] LABS: Basophils # 0.1 10*3/uL (0.0-0.2); Basophils % 0.4 % (0.0-0.8); Eosinophils # 1.1 10*3/uL (0.0-0.87); Eosinophils % 6.4 % (0.00-10.9); Hematocrit 37.8 VOL% (42.0-52.0); Hemoglobin 11.9 GM/DL (14.0-18.0); Immature Granulocytes % 1.1 %; Immature Granulocytes Absolute 0.19 #; Lymphocytes % 17.8 % (21.2-54.2); Mean Corpuscular HGB Conc 31.5 GM/DL (32-36); Mean Corpuscular Hemoglobin 24 PG (27-34); Mean Corpuscular Volume 77.5 FL (87-102); Mean Platelet Volume 9.4 FL (9.6-12.0); Monocytes # 0.5 10*3/uL (0.11-0.8); Monocytes % 2.8 % (1.7-12.7); Neutrophils # 11.9 10*3/uL (1.4-7.4); Neutrophils % 71.5 % (38.7-73.9); Platelet Count 458 T/CUMM (130-400); Red Blood Count 4.88 MC/CUMM (3.8-5.5); Red Cell Distribution Width 16.8 % (9.3-17.3); White Blood Count 16.7 T/CUMM (4-12)
[2017-06-16 06:27] LABS: Calcium 9.3 MG/DL (8.5-10.1); Osmolality,Calculated 274.1 MOS/KG (273-304); Potassium 5.1 MMOL/L (3.5-5.1)
[2017-06-16] MEDS: ALBUTEROL 2.5 MG/3 ML NEB RESP TX PRN (07:03)
[2017-06-16] MEDS: BUDESONIDE 0.25 MG/2 ML NEB RESP TX SCH ×2 (07:03→19:21)
[2017-06-16] MEDS ORDERED: ALBUTEROL 2.5 MG/3 ML NEB RESP TX SCH (09:00)
[2017-06-16] MEDS: MAGNESIUM CHLORIDE 64 MG TABLET PO SCH ×2 (09:13→20:52)
[2017-06-16] MEDS: ASPIRIN EC 81 MG TABLET PO SCH (09:13)
[2017-06-16] MEDS: PANTOPRAZOLE 40 MG TABLET PO SCH (09:14)
[2017-06-16] MEDS: CETIRIZINE 10 MG TABLET PO SCH (09:14)
[2017-06-16] MEDS: DILTIAZEM 30 MG TABLET PO SCH ×3 (09:14→20:52)
[2017-06-16] MEDS: APIXABAN 5 MG TABLET PO SCH ×2 (09:14→20:52)
[2017-06-16] MEDS: ALLOPURINOL 100 MG TABLET PO SCH (09:14)
[2017-06-16] MEDS: LOSARTAN 50 MG TABLET PO SCH (09:14)
[2017-06-16] MEDS: hydrALAZINE 25 MG TABLET PO SCH ×2 (09:15→20:53)
[2017-06-16] MEDS: POTASSIUM CHLORIDE 10 MEQ TABLET PO SCH ×2 (09:15→20:53)
[2017-06-16] MEDS: FLUTICASONE 50 MCG NASAL SPRAY 16 GM BOTTLE BOTH NARES SCH (09:16)
[2017-06-16] MEDS: INSULIN LISPRO 100 UNIT/ML SUBCUT SCH ×4 (09:18→21:25)
[2017-06-16 11:36] LABS: % Iron Saturation 15.2 % (18-50)
[2017-06-16] MEDS: MONTELUKAST 10 MG TABLET PO SCH (20:52)
[2017-06-17] MEDS: methylPREDNISolone SOD SUC 125 MG/2 ML VIAL IV SCH ×2 (00:03→05:55)
[2017-06-17 06:01] LABS: Basophils % 0.2 % (0.0-0.8); Eosinophils # 0.2 10*3/uL (0.0-0.87); Eosinophils % 0.6 % (0.00-10.9); Hematocrit 33.8 VOL% (42.0-52.0); Immature Granulocytes % 1.3 %; Immature Granulocytes Absolute 0.32 #; Lymphocytes # 1.7 10*3/uL (1.4-4.0); Lymphocytes % 6.9 % (21.2-54.2); Mean Corpuscular HGB Conc 32.5 GM/DL (32-36); Mean Corpuscular Hemoglobin 25 PG (27-34); Mean Corpuscular Volume 76.8 FL (87-102); Mean Platelet Volume 9.4 FL (9.6-12.0); Monocytes # 1.1 10*3/uL (0.11-0.8); Monocytes % 4.4 % (1.7-12.7); Neutrophils # 21.7 10*3/uL (1.4-7.4); Neutrophils % 86.6 % (38.7-73.9); Platelet Count 438 T/CUMM (130-400); Red Cell Distribution Width 16.7 % (9.3-17.3)
[2017-06-17 06:29] LABS: Calcium 9.2 MG/DL (8.5-10.1); Osmolality,Calculated 282.5 MOS/KG (273-304); Potassium 4.8 MMOL/L (3.5-5.1)
[2017-06-17] MEDS: BUDESONIDE 0.25 MG/2 ML NEB RESP TX SCH ×2 (07:10→19:34)
[2017-06-17 07:13] LABS: Band Neutrophils 2 % (0-10); Eosinophils 2 % (0-10); Lymphocytes 14 % (20-55); Microcytosis 1+; Platelet Estimate Normal; Segmented Neutrophils 77 % (50-85); Total Cells Counted 100
[2017-06-17] MEDS ORDERED: predniSONE 10 MG TABLET PO SCH (09:00)
[2017-06-17 09:04] LABS: Apearance,Urine CLEAR (Clear); Bacteria,Urine Occasional /HPF (Few); Bilirubin,Urine Negative (Negative); Blood, Urine Negative (Negative); Glucose,Urine (UA) Negative (Negative); Ketones,Urine Negative (Negative); Nitrite,Urine Negative (Negative); Protein,Urine Negative; Urine Color Yellow (Yellow); Urine Specific Gravity 1.004 (1.001-1.035); Urine Urobilinogen < 2.0 EU/DL (0.2-1.0)
[2017-06-17] MEDS: predniSONE 20 MG TABLET PO SCH ×2 (09:29→20:41)
[2017-06-17] MEDS: PANTOPRAZOLE 40 MG TABLET PO SCH (09:30)
[2017-06-17] MEDS: POTASSIUM CHLORIDE 10 MEQ TABLET PO SCH ×2 (09:30→20:41)
[2017-06-17] MEDS: DILTIAZEM 30 MG TABLET PO SCH ×3 (09:30→20:42)
[2017-06-17] MEDS: ASPIRIN EC 81 MG TABLET PO SCH (09:30)
[2017-06-17] MEDS: LOSARTAN 50 MG TABLET PO SCH (09:30)
[2017-06-17] MEDS: MAGNESIUM CHLORIDE 64 MG TABLET PO SCH ×2 (09:30→20:41)
[2017-06-17] MEDS: hydrALAZINE 25 MG TABLET PO SCH ×2 (09:30→20:41)
[2017-06-17] MEDS: ALLOPURINOL 100 MG TABLET PO SCH (09:30)
[2017-06-17] MEDS: INSULIN LISPRO 100 UNIT/ML SUBCUT SCH ×4 (09:32→20:42)
[2017-06-17] MEDS: CETIRIZINE 10 MG TABLET PO SCH (09:32)
[2017-06-17] MEDS: APIXABAN 5 MG TABLET PO SCH ×2 (09:32→20:41)
[2017-06-17] MEDS: FLUTICASONE 50 MCG NASAL SPRAY 16 GM BOTTLE BOTH NARES SCH (09:41)
[2017-06-17] MEDS: MONTELUKAST 10 MG TABLET PO SCH (20:41)
[2017-06-18 05:04] LABS: Eosinophils # 0.2 10*3/uL (0.0-0.87); Eosinophils % 1.1 % (0.00-10.9); Hematocrit 32.3 VOL% (42.0-52.0); Hemoglobin 10.3 GM/DL (14.0-18.0); Immature Granulocytes % 0.9 %; Immature Granulocytes Absolute 0.18 #; Lymphocytes # 1.8 10*3/uL (1.4-4.0); Lymphocytes % 8.5 % (21.2-54.2); Mean Corpuscular HGB Conc 31.9 GM/DL (32-36); Mean Corpuscular Hemoglobin 25 PG (27-34); Mean Corpuscular Volume 77.6 FL (87-102); Mean Platelet Volume 9.3 FL (9.6-12.0); Monocytes # 1.1 10*3/uL (0.11-0.8); Monocytes % 5.3 % (1.7-12.7); Neutrophils # 17.4 10*3/uL (1.4-7.4); Neutrophils % 84.2 % (38.7-73.9); Platelet Count 426 T/CUMM (130-400); Red Blood Count 4.16 MC/CUMM (3.8-5.5); Red Cell Distribution Width 16.9 % (9.3-17.3); White Blood Count 20.7 T/CUMM (4-12)
[2017-06-18 05:26] LABS: Eosinophils 2 % (0-10); Giant Platelets Few; Hypochromasia 1+; Lymphocytes 7 % (20-55); Ovalocytes Slight; Platelet Estimate Adequate; Segmented Neutrophils 82 % (50-85); Total Cells Counted 100
[2017-06-18 05:27] LABS: Microcytosis Slight
[2017-06-18 05:36] LABS: Calcium 8.9 MG/DL (8.5-10.1); Magnesium 2.6 MG/DL (1.8-2.4); Osmolality,Calculated 286.1 MOS/KG (273-304); Potassium 4.3 MMOL/L (3.5-5.1)
[2017-06-18] MEDS: BUDESONIDE 0.25 MG/2 ML NEB RESP TX SCH (07:22)
[2017-06-18 07:52] VITALS: BP 173/90
[2017-06-18] MEDS: INSULIN LISPRO 100 UNIT/ML SUBCUT SCH (08:07)
[2017-06-18] MEDS: ALLOPURINOL 100 MG TABLET PO SCH (09:12)
[2017-06-18] MEDS: MAGNESIUM CHLORIDE 64 MG TABLET PO SCH (09:12)
[2017-06-18] MEDS: FLUTICASONE 50 MCG NASAL SPRAY 16 GM BOTTLE BOTH NARES SCH (09:12)
[2017-06-18] MEDS: LOSARTAN 50 MG TABLET PO SCH (09:12)
[2017-06-18] MEDS: CETIRIZINE 10 MG TABLET PO SCH (09:13)
[2017-06-18] MEDS: POTASSIUM CHLORIDE 10 MEQ TABLET PO SCH (09:13)
[2017-06-18] MEDS: PANTOPRAZOLE 40 MG TABLET PO SCH (09:13)
[2017-06-18] MEDS: predniSONE 20 MG TABLET PO SCH (09:13)
[2017-06-18] MEDS: DILTIAZEM 30 MG TABLET PO SCH (09:13)
[2017-06-18] MEDS: ASPIRIN EC 81 MG TABLET PO SCH (09:13)
[2017-06-18] MEDS: APIXABAN 5 MG TABLET PO SCH (09:13)
[2017-06-18] MEDS: hydrALAZINE 25 MG TABLET PO SCH (09:13)
== END 2017-06-18 11:25 | disposition home or self-care (01) | DRG 300 ==
LOC: EDUNIT# → EDBD → N.ED 10:45 → N.EDINP 14:44 → N.2E 17:44
PROVIDERS: ADMIT Internal Medicine Infectious Disease; ATTEND Internal Medicine Infectious Disease